=== PATIENT | female | born 1960 | race Caucasian/White ===

== ENCOUNTER → 2016-07-25 | Outpatient (CLI) | payer OTHER ==
--- NOTE | 2016-07-25 18:00 | XR ---
EXAMINATION TYPE: XR forearm RT DATE OF EXAM: 07/25/2016 5:56 PM COMPARISON: NONE HISTORY: Right-sided pain TECHNIQUE: 2 views FINDINGS: Elbow joint and wrist joint appear intact. I see no fracture nor dislocation. There is no s ign of elbow joint effusion. IMPRESSION: Negative right forearm exam.
--- NOTE | 2016-07-25 18:04 | XR ---
EXAMINATION TYPE: XR ribs RT w pa chest xray DATE OF EXAM: 07/25/2016 5:55 PM COMPARISON: NONE HISTORY: Right-sided pain TECHNIQUE: 6 views FINDINGS: Heart is normal. Lungs are clear of consolidation. There is no sign of pleural effusion or pneumothorax. There are fractures of the anterior right ninth and eighth ribs. IMPRESSION: Right lower rib fractures. No cardiopulmonary disease. Heart and lungs are stable compare d to 02/27/2016.
--- NOTE | 2016-07-25 18:04 | XR ---
EXAMINATION TYPE: XR lumbar spine 2 or 3V DATE OF EXAM: 07/25/2016 5:56 PM COMPARISON: NONE HISTORY: Right-sided pain TECHNIQUE: 3 views FINDINGS: The vertebra have normal alignment. Disc spaces are fairly normal. There is spurring of the endplates anteriorly. Posterior elements are intact. I see no compression fracture. IMPRESSION: Hypertrophic degenerative disc changes. No fracture seen.
--- NOTE | 2016-07-25 18:06 | XR ---
EXAMINATION TYPE: XR femur RT DATE OF EXAM: 07/25/2016 5:56 PM COMPARISON: NONE HISTORY: Right-sided pain after fall TECHNIQUE: 4 views FINDINGS: There is spurring on the patella. Hip joint appears intact. I see no fracture. IMPRESSION: There is some osteoarthritis at the knee joint. No fracture seen.
== END ==
LOC: RADXRMAIN 17:25
PROVIDERS: ATTEND Emergency Medicine
DX: S50.11XA Contusion of right forearm, initial encounter (principal); S22.41XA Multiple fractures of ribs, right side, initial encounter for closed fracture; M51.36 Other intervertebral disc degeneration, lumbar region; S70.11XA Contusion of right thigh, initial encounter
CPT/HCPCS: 72100

== ENCOUNTER → 2016-07-30 | Outpatient (CLI) | payer OTHER ==
--- NOTE | 2016-07-30 10:03 | XR ---
AP pelvis HISTORY: Pelvic pain Frontal view of the pelvis Correlation to prior right femur 25 July 2016 Osteoarthritic change is present in the left hip. There is marginal spurring and joint space loss lef t greater than right. Degenerative disc changes are present in the lower lumbar spine. Bone mineraliz ation is maintained. IMPRESSION: Osteoarthritis. Degenerative disc disease. Bone scan, CT or MRI may be of increased sensi tivity as indicated.
== END | disposition home or self-care (01) ==
LOC: RADXRMAIN 09:11
PROVIDERS: ATTEND Emergency Medicine
DX: M16.0 Bilateral primary osteoarthritis of hip (principal)
CPT/HCPCS: 72170

== ENCOUNTER 2017-09-22 13:28 | Emergency (ER) | payer BC, OTHER ==
[2017-09-22 13:32] VITALS: RESP 18
[2017-09-22] MEDS ORDERED: KETOROLAC 30 MG/ML 1 ML VIAL IVP STA (13:48)
[2017-09-22] MEDS ORDERED: SODIUM CHLORIDE 0.9% 1,000 ML IV STA (13:48)
--- NOTE | 2017-09-22 13:52 | ED ---
General Adult HPI - General Chief complaint: Abdominal Pain Stated complaint: right side pain Time Seen by Provider: 09/22/17 13:41 Source: patient, RN notes reviewed Mode of arrival: ambulatory Limitations: no limitations - History of Present Illness Initial comments: Patient's a 56-year-old female presenting to the emergency room today with a chief complaint of right-sided back pain that started last night approximately 8 PM. Patient states it is a sharp pain that is constant but at times increases. She denies any specific injury or trauma. He is not better or worse with any specific movement. Patient denies any lumbar radiculopathy. Denies any saddle anesthesia. Denies any bowel or bladder incontinence retention. Patient states never had similar pain in the past. States had a difficult time sleeping last night due to pain and discomfort. Patient does admit to episodes of nausea vomiting this morning. Patient denies any recent fever, chills, shortness of breath, chest pain, abdominal pain, numbness or tingling, dysuria or hematuria, constipation or diarrhea, headaches or visual changes, or any other complaints. - Related Data Home Medications Medication Instructions Recorded Confirmed Aspirin EC [Ecotrin Low Dose] 81 mg PO DAILY 02/27/16 09/22/17 Atenolol [Tenormin] 25 mg PO DAILY 02/27/16 09/22/17 Hydrochlorothiazide [Hydrodiuril] 25 mg PO DAILY 02/27/16 09/22/17 Levothyroxine Sodium [Synthroid] 112 mcg PO DAILY 02/27/16 09/22/17 Sertraline [Zoloft] 50 mg PO DAILY 02/27/16 09/22/17 metFORMIN HCL [Glucophage] 500 mg PO DAILY 02/27/16 09/22/17 Omeprazole 20 mg PO DAILY 09/22/17 09/22/17 Previous Rx's Medication Instructions Recorded Cyclobenzaprine [Flexeril] 10 mg PO TID #20 tab 09/22/17 Ibuprofen [Motrin] 800 mg PO Q6HR #30 tab 09/22/17 Potassium Chloride [K-Tab ER] 10 meq PO DAILY #5 tablet.er 09/22/17 Allergies Allergy/AdvReac Type Severity Reaction Status Date / Time No Known Allergies Allergy Verified 09/22/17 13:59 Review of Systems ROS Statement: Those systems with pertinent positive or pertinent negative responses have been documented in the HPI. ROS Other: All systems not noted in ROS Statement are negative. Past Medical History Past Medical History: Hypertension, Thyroid Disorder Additional Past Medical History / Comment(s): pre-diabetic per pt, hypothyroid History of Any Multi-Drug Resistant Organisms: None Reported Past Surgical History: Tonsillectomy Additional Past Surgical History / Comment(s): L carpal tunnel release, colonoscopy-normal. Past Anesthesia/Blood Transfusion Reactions: No Reported Reaction Past Psychological History: No Psychological Hx Reported Smoking Status: Current every day smoker Past Alcohol Use History: Occasional Past Drug Use History: None Reported - Past Family History Father Family Medical History: Diabetes Mellitus Additional Family Medical History / Comment(s): Father is a brittle diabetic. He has heart problems. He is 81 yrs old. Mother Family Medical History: AFIB, Diabetes Mellitus Additional Family Medical History / Comment(s): Mother had heart problems, diabetes, back problems. She of Afib at the age of 75yrs. General Exam - General Exam Comments Initial Comments: General: The patient is awake and alert, in no distress, and does not appear acutely ill. Eye: Pupils are equal, round and reactive to light, extra-ocular movements are intact. No nystagmus. There is normal conjunctiva bilaterally. No signs of icterus. Ears, nose, mouth and throat: There are moist mucous membranes and no oral lesions. Neck: The neck is supple, there is no tenderness or JVD. Cardiovascular: There is a regular rate and rhythm. No murmur, rub or gallop is appreciated. Respiratory: Lungs are clear to auscultation, respirations are non-labored, breath sounds are equal. No wheezes, stridor, rales, or rhonchi. Gastrointestinal: Soft, non-distended, non-tender abdomen without masses or organomegaly noted. There is no rebound or guarding present. No CVA tenderness. Musculoskeletal: Normal ROM. No tenderness over thoracic or lumbar spine. No step-off deformity. Patient does have paravertebral tenderness to the right side of the lower lumbar. Strength 5/5. Sensation intact. Pulses equal bilaterally 2+. Neurological: A&O x 3. CN II-XII intact, There are no obvious motor or sensory deficits. Coordination appears grossly intact. Speech is normal. Skin: Skin is warm and dry and no rashes or lesions are noted. Psychiatric: Cooperative, appropriate mood & affect, normal judgment. Limitations: no limitations Course Vital Signs 09/22/17 13:30 Temperature 98.0 F Pulse Rate 65 Respiratory 18 Rate Blood Pressure 130/80 O2 Sat by Pulse 97 Oximetry Medical Decision Making - Medical Decision Making Patient reexamined at this time shows no signs of distress. She is resting comfortably. Her pain is reproduced on palpation to the lower back and over the SI joint. Her x-rays have been reviewed are unremarkable. Her labs reviewed and does show potassium 3.0. She is on hydrochlorothiazide which she states she's been on for many years. Case was discussed with attending physician Dr. Koch. Patient will be discharged home on muscle relaxer, anti-inflammatories, and potassium supplement. She is advised to follow-up with family doctor over the next 2 days have potassium rechecked. Advised return here to emergency room if any symptoms increase or worsen or for new concerns. - Lab Data Result diagrams: 09/22/17 13:55 09/22/17 13:55 Lab Results 09/22/17 09/22/17 09/22/17 Range/Units 13:55 13:55 14:13 WBC 11.2 H (3.8-10.6) k/uL RBC 4.46 (3.80-5.40) m/uL Hgb 13.8 (11.4-16.0) gm/dL Hct 41.8 (34.0-46.0) % MCV 93.7 (80.0-100.0) fL MCH 31.0 (25.0-35.0) pg MCHC 33.1 (31.0-37.0) g/dL RDW 14.0 (11.5-15.5) % Plt Count 310 (150-450) k/uL Neutrophils % 77 % Lymphocytes % 16 % Monocytes % 4 % Eosinophils % 1 % Basophils % 1 % Neutrophils # 8.6 H (1.3-7.7) k/uL Lymphocytes # 1.8 (1.0-4.8) k/uL Monocytes # 0.4 (0-1.0) k/uL Eosinophils # 0.2 (0-0.7) k/uL Basophils # 0.1 (0-0.2) k/uL Sodium 139 (137-145) mmol/L Potassium 3.0 L* (3.5-5.1) mmol/L Chloride 97 L (98-107) mmol/L Carbon Dioxide 28 (22-30) mmol/L Anion Gap 14 mmol/L BUN 11 (7-17) mg/dL Creatinine 0.69 (0.52-1.04) mg/dL Est GFR (CKD-EPI)AfAm >90 (>60 ml/min/1.73 sqM) Est GFR (CKD-EPI)NonAf >90 (>60 ml/min/1.73 sqM) Glucose 150 H (74-99) mg/dL Calcium 9.0 (8.4-10.2) mg/dL Total Bilirubin 1.1 (0.2-1.3) mg/dL AST 24 (14-36) U/L ALT 33 (9-52) U/L Alkaline Phosphatase 92 (38-126) U/L Total Protein 6.8 (6.3-8.2) g/dL Albumin 4.2 (3.5-5.0) g/dL Amylase 38 (30-110) U/L Lipase 49 (23-300) U/L Urine Color Yellow Urine Appearance Clear (Clear) Urine pH 6.5 (5.0-8.0) Ur Specific [place] 1.017 (1.001-1.035) Urine Protein Negative (Negative) Urine Glucose (UA) Negative (Negative) Urine Ketones Negative (Negative) Urine Blood Negative (Negative) Urine Nitrite Negative (Negative) Urine Bilirubin Negative (Negative) Urine Urobilinogen <2.0 (<2.0) mg/dL Ur Leukocyte Esterase Negative (Negative) Disposition Clinical Impression: Acute low back pain, Hypokalemia Disposition: HOME SELF-CARE Condition: Good Instructions: Acute Low Back Pain (ED) Additional Instructions: Please use medication as discussed. Please follow-up with family doctor in the next 2 days of symptoms have not improved. Please return to emergency room if the symptoms increase or worsen or for any other concerns. Prescriptions: Cyclobenzaprine [Flexeril] 10 mg PO TID #20 tab Ibuprofen [Motrin] 800 mg PO Q6HR #30 tab Potassium Chloride [K-Tab ER] 10 meq PO DAILY #5 tablet.er Is patient prescribed a controlled substance at d/c from ED?: No Referrals: Trevor Guan MD [Primary Care Provider] - 1-2 days Time of Disposition: 15:59
[2017-09-22 14:04] LABS: Basophils # (A) 0.1 k/uL (0-0.2); Basophils % (A) 1 %; Eosinophils # (A) 0.2 k/uL (0-0.7); Eosinophils % (A) 1 %; HCT 41.8 % (34.0-46.0); HGB 13.8 gm/dL (11.4-16.0); Lymphocytes # (A) 1.8 k/uL (1.0-4.8); Lymphocytes % (A) 16 %; MCHC 33.1 g/dL (31.0-37.0); MCV 93.7 fL (80.0-100.0); Mean Platelet Volume 7.5; Monocytes # (A) 0.4 k/uL (0-1.0); Monocytes % (A) 4 %; Neutrophils # (A) 8.6 k/uL (1.3-7.7); Neutrophils % (A) 77 %; Platelet Count 310 k/uL (150-450); RBC 4.46 m/uL (3.80-5.40); WBC 11.2 k/uL (3.8-10.6)
[2017-09-22 14:14] LABS: ALT 33 U/L (9-52); AST 24 U/L (14-36); Albumin 4.2 g/dL (3.5-5.0); Alkaline Phosphatase 92 U/L (38-126); Amylase 38 U/L (30-110); Anion Gap 14 mmol/L; Blood Urea Nitrogen 11 mg/dL (7-17); Carbon Dioxide 28 mmol/L (22-30); Chloride 97 mmol/L (98-107); Glucose 150 mg/dL (74-99); Lipase 49 U/L (23-300); Sodium 139 mmol/L (137-145); Total Bilirubin 1.1 mg/dL (0.2-1.3); Total Protein 6.8 g/dL (6.3-8.2)
[2017-09-22] MEDS ORDERED: POTASSIUM CHLORIDE ER 20 MEQ TAB.ER PO STA (14:20)
[2017-09-22 14:34] LABS: Appearance,Urine Clear (Clear); Bilirubin,Urine Negative (Negative); Blood,Urine Negative (Negative); Color,Urine Yellow; Glucose,Urine (UA) Negative (Negative); Ketones,Urine Negative (Negative); Leukocyte Esterase,Urine Negative (Negative); Nitrite,Urine Negative (Negative); PH, Urine 6.5 (5.0-8.0); Protein,Urine Negative (Negative); Specific Gravity,Urine 1.017 (1.001-1.035); Urobilinogen,Urine <2.0 mg/dL (<2.0)
--- NOTE | 2017-09-22 14:54 | XR ---
EXAMINATION TYPE: XR lumbar spine 2 or 3V DATE OF EXAM: 09/22/2017 COMPARISON: 07/25/2016 HISTORY: Pain lumbar spine x1 day TECHNIQUE: 4 view lumbar spine FINDINGS: There 5 lumbar-type vertebral bodies. There is attempted sacralization of L5. Spondylosis i s present. IMPRESSION: 1. Stable 4 view lumbar spine
--- NOTE | 2017-09-22 15:34 | XR ---
EXAMINATION TYPE: XR KUB DATE OF EXAM: 09/22/2017 2:47 PM CLINICAL HISTORY: Abdominal and low back pain. TECHNIQUE: Two Upright KUB images of the abdomen are obtained. COMPARISON: None. FINDINGS: Scattered gas is seen in non-distended stomach and small bowel loops. Gas is seen in non-di stended colon. There is multilevel spurring in the thoracic and lumbar spine. Lung bases are clear. T here is old posterior lateral left ninth rib fracture. Spectral lateral lower right rib fractures. No pneumoperitoneum or suspicious calcifications are seen. IMPRESSION: Overall nonobstructive bowel gas pattern.
[2017-09-22 16:12] VITALS: BP 132/63; PULSE 79; TEMP 98.5
== END 2017-09-22 16:11 | disposition home or self-care (01) ==
LOC: EC 13:28
DX: M54.5 Low back pain (principal); E87.6 Hypokalemia; I10 Essential (primary) hypertension; E03.9 Hypothyroidism, unspecified; F17.200 Nicotine dependence, unspecified, uncomplicated; Z79.82 Long term (current) use of aspirin; Z79.84 Long term (current) use of oral hypoglycemic drugs; Z79.899 Other long term (current) drug therapy
CPT/HCPCS: 99284; 96374; 96361; 36415; 80053; 82150; 83690; 85025; 81003; 72100; 74018; J1885

== ENCOUNTER 2018-02-05 19:17 | Emergency (ER) | payer BC ==
[2018-02-05 19:59] VITALS: TEMP 98.4
--- NOTE | 2018-02-05 20:23 | ED ---
Back Pain HPI - General Chief Complaint: Back Pain/Injury Stated Complaint: fall/back pain & SOB Time Seen by Provider: 02/05/18 20:13 Source: patient, RN notes reviewed Mode of arrival: ambulatory Limitations: no limitations - History of Present Illness Initial Comments: This is a 57-year-old female who presents to the emergency department with chief complaint of fall injury. Patient states that at approximately 5:30 this evening she was blowing leaves off of the cover on her inground pool. She states that she got too close to the pool and almost stepped in. She lost her balance, fell backward and landed onto her left side. Patient states that she has been experiencing pain to the left side of her back that extends from the pelvis up to her shoulder blade. She states that she is having difficulty walking due to the pain. Denies any hip pain. She denies saddle paresthesias or loss of bladder or bowel function. Denies numbness or tingling. Denies radiation of pain. Denies abdominal pain, nausea or vomiting, dizziness or headache. Denies hitting her head. Denies neck pain. - Related Data Home Medications Medication Instructions Recorded Confirmed Aspirin EC [Ecotrin Low Dose] 81 mg PO DAILY 02/27/16 09/22/17 Atenolol [Tenormin] 25 mg PO DAILY 02/27/16 09/22/17 Hydrochlorothiazide [Hydrodiuril] 25 mg PO DAILY 02/27/16 09/22/17 Levothyroxine Sodium [Synthroid] 112 mcg PO DAILY 02/27/16 09/22/17 Sertraline [Zoloft] 50 mg PO DAILY 02/27/16 09/22/17 metFORMIN HCL [Glucophage] 500 mg PO DAILY 02/27/16 09/22/17 Omeprazole 20 mg PO DAILY 09/22/17 09/22/17 Previous Rx's Medication Instructions Recorded Cyclobenzaprine [Flexeril] 10 mg PO TID #20 tab 09/22/17 Ibuprofen [Motrin] 800 mg PO Q6HR #30 tab 09/22/17 Potassium Chloride [K-Tab ER] 10 meq PO DAILY #5 tablet.er 09/22/17 Allergies Allergy/AdvReac Type Severity Reaction Status Date / Time No Known Allergies Allergy Verified 02/05/18 19:50 Review of Systems ROS Statement: Those systems with pertinent positive or pertinent negative responses have been documented in the HPI. ROS Other: All systems not noted in ROS Statement are negative. Past Medical History Past Medical History: Hypertension, Thyroid Disorder Additional Past Medical History / Comment(s): pre-diabetic per pt, hypothyroid History of Any Multi-Drug Resistant Organisms: None Reported Past Surgical History: Tonsillectomy Additional Past Surgical History / Comment(s): L carpal tunnel release, colonoscopy-normal. Past Anesthesia/Blood Transfusion Reactions: No Reported Reaction Past Psychological History: No Psychological Hx Reported Smoking Status: Current every day smoker Past Alcohol Use History: Occasional Past Drug Use History: None Reported - Past Family History Father Family Medical History: Diabetes Mellitus Additional Family Medical History / Comment(s): Father is a brittle diabetic. He has heart problems. He is 81 yrs old. Mother Family Medical History: AFIB, Diabetes Mellitus Additional Family Medical History / Comment(s): Mother had heart problems, diabetes, back problems. She of Afib at the age of 75yrs. General Exam - General Exam Comments Initial Comments: General: Awake and alert, well-developed; in no apparent distress. HEENT: Head atraumatic, normocephalic. Pupils are equal, round and reactive to light. Extraocular movements intact. Oropharynx moist without erythema or exudate. Neck: Supple. Normal ROM. Cardiovascular: Regular rate and rhythm. No murmurs, rubs or gallops. Chest symmetrical. Pedal pulses are 2+ equal and palpable bilaterally. Respiratory: Lungs clear to auscultation bilaterally. No wheezes, rales or rhonchi. Normal respiratory effort with no use of accessory muscles. Musculoskeletal: Normal ROM, no tenderness bilateral upper and lower extremities. Ambulating with a limp. Skin: [place], warm and dry without rashes or lesions. Neurological: Alert and oriented x3. CN II-XII grossly intact. Speech is fluent and answers are appropriate. No focal neuro deficits. Psychiatric: Normal mood and affect. No overt signs of depression or anxiety noted. Limitations: no limitations Back exam: Present: normal inspection, tenderness (generalized tenderness on palpation of lumbar and thoracic left back ), paraspinal tenderness. Absent: vertebral tenderness Course Vital Signs 02/05/18 02/05/18 19:47 21:57 Temperature 98.4 F Pulse Rate 74 63 Respiratory 20 17 Rate Blood Pressure 147/81 145/73 O2 Sat by Pulse 99 97 Oximetry Medical Decision Making - Medical Decision Making This is a 57-year-old female who presents to the emergency department with chief complaint of back injury. Patient reports falling earlier this evening. She reports pain that extends from the left side of her pelvis up to the left scapula. There is generalized tenderness on palpation of the left side of back. X-rays of the thoracic and lumbar spine were obtained which reveal no acute abnormalities. Patient is likely suffering from contusion. She states that she does have ibuprofen and Tylenol at home that she can take. Recommended following up with her primary care provider. Patient is in no acute distress and will be discharged home at this time. She is in agreement with plan and voices understanding. All questions have been answered. - Radiology Data Radiology results: report reviewed Lumbar spine x-ray impression: Negative lumbar spine exam. No fracture. X-ray thoracic spine impression: There is evidence of old fractures of T6 and T7 unchanged compared to old exam. No acute fracture seen. Disposition Clinical Impression: Fall, Contusion, back Disposition: HOME SELF-CARE Condition: Good Instructions: Back Pain (ED) Additional Instructions: Please follow up with primary care provider within 1-2 days. Return to emergency department if symptoms should worsen or any concerns arise. Is patient prescribed a controlled substance at d/c from ED?: No Referrals: Trevor Guan MD [Primary Care Provider] - 1-2 days Time of Disposition: 21:25
--- NOTE | 2018-02-05 21:05 | XR ---
EXAMINATION TYPE: XR lumbar spine 2 or 3V DATE OF EXAM: 02/05/2018 COMPARISON: NONE HISTORY: Back pain TECHNIQUE: 3 views FINDINGS: The vertebra have normal alignment. Posterior elements are intact. Disc spaces are fairly n ormal. There is spurring of the endplates. Sacroiliac joints appear intact. IMPRESSION: Negative lumbar spine exam. No fracture.
--- NOTE | 2018-02-05 21:09 | XR ---
EXAMINATION TYPE: XR thoracic spine complete DATE OF EXAM: 02/05/2018 COMPARISON: 02/27/2016 HISTORY: Back pain TECHNIQUE: 3 views FINDINGS: Vertebra have normal alignment. There is some sclerosis in the T6 vertebral body. There is no significant loss of height. There is no paraspinal mass. Posterior elements are intact. There is m ultilevel hypertrophic anterior bridging osteophyte formation. There is 10% wedging of T6 and T7 vert ebral bodies. IMPRESSION: There is evidence of old fractures of T6 and T7 unchanged compared to old exam. No acute fracture seen.
[2018-02-05] MEDS ORDERED: KETOROLAC 30 MG/ML 1 ML VIAL IM STA (21:20)
[2018-02-05 21:58] VITALS: BP 145/73; PULSE 63; RESP 17
== END 2018-02-05 21:59 | disposition home or self-care (01) ==
LOC: EC 19:17
DX: S30.0XXA Contusion of lower back and pelvis, initial encounter (principal); S20.229A Contusion of unspecified back wall of thorax, initial encounter; I10 Essential (primary) hypertension; E03.9 Hypothyroidism, unspecified; R73.03 Prediabetes; F17.200 Nicotine dependence, unspecified, uncomplicated; Z79.82 Long term (current) use of aspirin; Z79.84 Long term (current) use of oral hypoglycemic drugs; Z79.899 Other long term (current) drug therapy; W01.0XXA Fall on same level from slipping, tripping and stumbling without subsequent striking against object, initial encounter; Y92.89 Other specified places as the place of occurrence of the external cause
CPT/HCPCS: 72072; 72100; 99283; 96372; J1885

== ENCOUNTER 2019-08-02 11:02 | Day surgery (SDC) | payer BC, OTHER ==
[2019-07-30 11:52] VITALS: BMI 40.2
[~2019-08-02 11:02] MED LIST: DEXAMETHASONE SOD PHOSPHATE 10 MG/ML 1 ML VIAL IV ONE; LACTATED RINGERS 1,000 ML IV SCH; LIDOCAINE 1% (10MG/ML) FOR IV START INTRADERMA PRN; MIDAZOLAM 2 MG/2 ML VIAL IV PRN; ONDANSETRON 4 MG/2 ML VIAL IVP ONE; Pre Op ABX Message 1 EACH MISC MISCELLANE ONE; fentaNYL (PF) 50 MCG/ML 2 ML AMP IV PRN
[2019-08-02 11:36] LABS: Glucose,Whole Blood 112 mg/dL (75-99)
[2019-08-02 11:53] LABS: Basophils # (A) 0.1 k/uL (0-0.2); Basophils % (A) 1 %; Eosinophils # (A) 0.1 k/uL (0-0.7); Eosinophils % (A) 2 %; HCT 42.8 % (34.0-46.0); HGB 13.5 gm/dL (11.4-16.0); Lymphocytes # (A) 1.5 k/uL (1.0-4.8); Lymphocytes % (A) 23 %; MCH 28.3 pg (25.0-35.0); MCHC 31.5 g/dL (31.0-37.0); MCV 89.7 fL (80.0-100.0); Monocytes # (A) 0.3 k/uL (0-1.0); Monocytes % (A) 5 %; Neutrophils # (A) 4.6 k/uL (1.3-7.7); Neutrophils % (A) 68 %; Platelet Count 246 k/uL (150-450); RBC 4.77 m/uL (3.80-5.40); WBC 6.7 k/uL (3.8-10.6)
[2019-08-02 11:56] LABS: Potassium 3.5 mmol/L (3.5-5.1)
[2019-08-02] MEDS ORDERED: PROPOFOL 10 MG/ML 20 ML VIAL IV ONE (11:59)
[2019-08-02] MEDS ORDERED: ROCURONIUM BROMIDE 10 MG/ML 5 ML VIAL IV ONE (11:59)
[2019-08-02] MEDS ORDERED: NEOSTIGMINE 1 MG/ML 10 ML VIAL ONE (11:59)
[2019-08-02] MEDS ORDERED: GLYCOPYRROLATE 0.2 MG/ML 2 ML VIAL ONE (11:59)
[2019-08-02] MEDS ORDERED: ALFENTANIL 500 MCG/ML 2 ML AMP IV ONE (11:59)
[2019-08-02] MEDS ORDERED: LIDOCAINE 1% INJ 10MG/ML (20 ML MDV) ONE (11:59)
[2019-08-02] MEDS ORDERED: SUCCINYLCHOLINE CHLORIDE 100 MG/5 ML SYR IV ONE (11:59)
[2019-08-02] MEDS ORDERED: ePHEDrine SULFATE/0.9% NACL/PF 50 MG/5 ML SYRINGE IV ONE (11:59)
[2019-08-02] MEDS ORDERED: MIDAZOLAM 2 MG/2 ML VIAL ONE (11:59)
[2019-08-02] MEDS ORDERED: SODIUM CHLORIDE 0.9% 100 ML with ceFAZolin 2,000 MG IV ONE ×2 (12:12)
[2019-08-02] MEDS ORDERED: LACTATED RINGERS 1,000 ML IV ONE (12:35)
--- NOTE | 2019-08-02 13:05 | P.OP ---
Date of Procedure: 08/02/19 Preoperative Diagnosis: 1. 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 Current every day cigarette smoker Postoperative Diagnosis: Same Procedure(s) Performed: 1. Implant arthroplasty right first MTP joint 2. Hardware removal deep, right foot Anesthesia: KALPESH, regional Surgeon: Mehul Walters Gutter Hanger #1: Nancy Marks Estimated Blood Loss (ml): 10 IV fluids (ml): 1,000 Pathology: none sent Condition: stable Disposition: PACU Indications for Procedure: The patient is a very pleasant 58-year-old female who previously underwent a first MTP arthrodesis for an arthritic hallux valgus. She is a smoker and was strongly encouraged to quit smoking before surgery, but was unable to do so. Unfortunately the patient went on to develop symptomatically hardware and a p ossible nonunion of the fusion site. Due to the hardware backing out and tenting the skin I discussed urgently removing the hardware for fear that it would cause wound breakdown. The patient was at particular risk for this due to her smoking. The patient understands the increased risk due to Wood virus, but agrees that she would like to go forward. Given the circumstances I think the risk of leaving the hardware is outweighed by the benefit of hardware removal. If the joint is fused we discussed leaving it and if there is evidence of a gross nonunion we discussed implant arthroplasty versus revision fusion. Since the patient is still smoking my recommendation was to perform implant arthroplasty understanding the limitations and potential for recurrence. The patient is well aware of the potential risks and complications of surgery including but certainly not limited to infection, delayed wound healing, nonunion, malunion, overcorrection, under correction, failure of the implant, recurrence of her hallux valgus, damage to local blood vessels or nerves, continued or worsened pain, to satisfaction with surgery, DVT, PE, other medical complications, possibly loss of life or limb. The patient also understands the potential that she may still have symptoms requiring refusion in the future. She was strongly encouraged to quit smoking to help with the healing process. Operative Findings: Gross nonunion of the fusion site Description of Procedure: The patient was identified in preoperative holding and the correct right foot was marked with my initials. I reviewed the consent form with the patient and all of her questions were answered. The patient was then brought back to the operating room patches position on the or table where general anesthetic and preoperative antibiotics were given. A tourniquet was applied the proximal aspect of the right leg. A bump was placed with the right buttock internally rotating the leg to neutral. It bump and ramp were placed over the leg to facilitate it for imaging. The right leg was then prepped and draped in the standard sterile fashion. Prior to starting surgery timeout was performed identifying the correct patient, operative extremity, and procedure. The patient's leg was then elevated, exsanguinated with an Esmarch bandage, and the tourniquet was inflated to 250 mmHg. I began by making an incision directly over the scar over the first MTP joint. Dissection was carried down carefully to the subcu cutaneous tissue. The osteal layer over the plate was sharply elevated. All the hardware was sequentially removed. On inspection of the joint there was a gross nonunion with movement. The joint was circumferentially exposed. At this point I was able to adequately plantarflex the proximal phalanx to gain access to the metatarsal head. Using a ruler I estimated that an 8 mm implant would fit her anatomy. A K wire was placed through the cannulated sizing guide for an 8 mm implant down the central aspect of the metatarsal. A reamer was used to create a bony socket for the implant. The wound was thoroughly irrigated. An 8 mm Cartiva implant was d ispensed and then press-fit into the cavity. It appeared stable. X-rays were taken Dr. Reis hardware removal. The wound was then thoroughly irrigated. The periosteal layer was closed with running 3-0 Monocryl. The deep subcu was reapproximated using 3-0 Monocryl. The skin was closed with interrupted 3-0 nylon. The tourniquet was let down. A sterile dressing was applied followed by a boot. The patient was then awoken from her anesthetic, transferred from the OR table to the [facility], and brought to recovery having tolerated the procedure well.
--- NOTE | 2019-08-02 13:13 | XR ---
Fluoroscopy INDICATION: Pain FINDINGS: Fluoroscopy time: 1 seconds. Images obtained: 1. IMPRESSIONS: 1. Documentation of fluoroscopy.
[2019-08-02] MEDS: HYDROmorphone 0.5 MG/0.5 ML SYRINGE IVP PRN ×4 (13:17→13:46)
[2019-08-02 13:26] VITALS: TEMP 96.8
[2019-08-02 13:36] VITALS: RESP 18
[2019-08-02] MEDS ORDERED: KETOROLAC 30 MG/ML 1 ML VIAL IVP ONE (13:42)
[2019-08-02 14:27] VITALS: BP 119/84; PULSE 51
== END 2019-08-02 15:07 | disposition home or self-care (01) ==
LOC: OR 11:02
PROVIDERS: ATTEND Orthopaedic Surgery
DX: T84.84XA Pain due to internal orthopedic prosthetic devices, implants and grafts, initial encounter (principal); M96.0 Pseudarthrosis after fusion or arthrodesis; M20.11 Hallux valgus (acquired), right foot; Y69 Unspecified misadventure during surgical and medical care; I10 Essential (primary) hypertension; E11.9 Type 2 diabetes mellitus without complications; M19.071 Primary osteoarthritis, right ankle and foot; F17.210 Nicotine dependence, cigarettes, uncomplicated; E07.9 Disorder of thyroid, unspecified; F41.9 Anxiety disorder, unspecified; K21.9 Gastro-esophageal reflux disease without esophagitis; Z79.890 Hormone replacement therapy; Z79.84 Long term (current) use of oral hypoglycemic drugs; Z79.899 Other long term (current) drug therapy
CPT/HCPCS: 80051; 85025; 73660; 20680; 28291; J1100; J2405; J0690; J1885; J1170

== ENCOUNTER → 2020-05-04 | Outpatient (CLI) | payer BC ==
--- NOTE | 2020-05-04 08:46 | CT ---
EXAMINATION TYPE: CT brain wo con DATE OF EXAM: 05/04/2020 COMPARISON: None HISTORY: 59-year-old female Unsteadiness and decreased mobility TECHNIQUE: Examination was done in axial plane without intravenous contrast. Coronal and sagittal r econstructions performed. CT DLP: 978.2 mGycm Automated exposure control for dose reduction was used. FINDINGS: There is no evidence of acute intracranial hemorrhage, acute ischemic changes, mass, mass-effect, or extra-axial fluid collection. There is no effacement of cerebral sulci or basal subarachnoid cister ns. There is no hydrocephalus. There is no midline shift. Brush-white matter distinction is preserv ed. Mild bifrontal cerebral atrophy and volume loss. Mild/moderate mucosal thickening ethmoid air cells. Mastoid air cells well pneumatized. Orbits and gl obes are intact. Leftward nasal septal deviation. IMPRESSION: Mild bifrontal atrophy. Otherwise, No acute intracranial abnormality seen. Mild chronic ethmoid sinus disease.
== END | disposition home or self-care (01) ==
LOC: RADCTMAIN 07:55
PROVIDERS: ATTEND Family Medicine
DX: G31.1 Senile degeneration of brain, not elsewhere classified (principal); R26.89 Other abnormalities of gait and mobility
CPT/HCPCS: 70450

== ENCOUNTER → 2021-06-13 | Outpatient (CLI) | payer BC ==
--- NOTE | 2021-06-13 15:25 | XR ---
EXAMINATION TYPE: XR Hip LT and AP Pelvis DATE OF EXAM: 06/13/2021 COMPARISON: NONE HISTORY: M54.32 TECHNIQUE: A single AP view of the pelvis is obtained. Two views of the left hip are obtained. FINDINGS: There is no acute fracture/dislocation evident in the pelvis. There is marked osteoarthrit ic change in the left hip similar to prior exam. Some remodeling the femoral head is noted, is margin al spurring. Concentric narrowing of the joint space is noted, consider femoral acetabular impingemen t. Degenerative disc changes are noted incidentally in the lower lumbar spine. IMPRESSION: Osteoarthritis left hip
== END | disposition home or self-care (01) ==
LOC: RADXRMAIN 14:27
PROVIDERS: ATTEND Family Medicine
DX: M16.12 Unilateral primary osteoarthritis, left hip (principal)
CPT/HCPCS: 73502